=== PATIENT | male | born 1970 | race Caucasian/White ===

== ENCOUNTER 2023-01-31 11:59 | Emergency (ER) | payer BC ==
[~2023-01-31] VITALS: Ht 175.3 cm; Wt 88.5 kg
[2023-01-31] MEDS ORDERED: ONDANSETRON HCL INJ 2MG/ML 2ML 2 MG/ML VIAL IV STA (12:12)
[2023-01-31 12:15] VITALS: O2SAT 98
[2023-01-31] MEDS ORDERED: Morphine 4mg INJECTION 4 MG/ML INJ IV ONE (12:15)
[2023-01-31] MEDS ORDERED: Morphine 4mg INJECTION 4 MG/ML INJ ONE (12:24)
[2023-01-31] MEDS ORDERED: KETOROLAC TROMETHAMINE 30 MG/ML VIAL IV STA (13:53)
[2023-01-31] MEDS ORDERED: ONDANSETRON ODT4 MG PO (14:02)
[2023-01-31] MEDS ORDERED: FLOMAX0.4 MG PO (14:02)
[2023-01-31] MEDS ORDERED: KETOROLAC TROME10 MG PO (14:02)
== END 2023-01-31 14:20 | disposition home or self-care (01) ==
LOC: FSED 12:03
DX: R10.32 Left lower quadrant pain (principal); N13.2 Hydronephrosis with renal and ureteral calculous obstruction; R31.9 Hematuria, unspecified; R11.0 Nausea; I10 Essential (primary) hypertension; E78.5 Hyperlipidemia, unspecified; F41.9 Anxiety disorder, unspecified; F17.290 Nicotine dependence, other tobacco product, uncomplicated
CPT/HCPCS: 71045; 74177; 80048; 80076; 81003; 85025; 99284; J1885; J2270; J2405; 93005